=== PATIENT | female | born 1990 | race Hispanic/Latino ===

== ENCOUNTER 2023-07-12 01:05 | Observation (INO) | payer MEDICAID ==
[~2023-07-12] VITALS: Ht 160 cm; Wt 75.7 kg
[2023-07-12] VITALS (9 sets, daily range): BP systolic 108–141; BP diastolic 57–81; PULSE 68–83; RESP 16–20; O2SAT 98–100
[2023-07-12 01:32] LABS: BASOPHILS # (AUTO) 0.03 K/uL (0.00-0.20); BASOPHILS % (AUTO) 0.7 % (0.0-5.0); EOSINOPHILS # (AUTO) 0.01 K/uL (0.00-0.70); EOSINOPHILS % (AUTO) 0.2 % (0.0-8.0); HEMATOCRIT 31.2 % (36-48); IMMATURE GRANULOCYTE ABSOLUTE 0.01 K/uL (0-1); LYMPHOCYTES # (AUTO) 1.1 K/uL (1.0-4.8); LYMPHOCYTES % (AUTO) 23.2 % (21.0-51.0); MEAN CORPUSCULAR HEMOGLOBIN 19.9 pg (27.0-33.0); MEAN CORPUSCULAR HGB CONC 29.5 g/dL (32.0-36.0); MEAN CORPUSCULAR VOLUME 67.4 fL (79-99); MONOCYTES # (AUTO) 0.5 K/uL (0.1-1.0); MONOCYTES % (AUTO) 9.8 % (3.0-13.0); NEUTROPHILS % (AUTO) 65.9 % (40.0-77.0); PLATELET COUNT (AUTO) 280 K/uL (130-400); RED BLOOD CELL COUNT(AUTO) 4.63 MIL/uL (4.00-5.50); RED CELL DISTRIBUTION WIDTH 18.4 % (11.0-15.5); WHITE BLOOD COUNT (AUTO) 4.6 K/uL (4.8-10.8)
[2023-07-12 01:43] LABS: CREATININE 0.8 mg/dL (0.5-1.5); POTASSIUM 3.9 mmol/L (3.5-5.1)
[2023-07-12 01:45] LABS: ALBUMIN 3.5 g/dL (3.5-5.0); BILIRUBIN,TOTAL 0.5 mg/dL (0.2-1.0); TOTAL PROTEIN, SERUM 7.4 g/dL (6.0-8.3)
[2023-07-12 01:47] LABS: APPEARANCE,URINE CLEAR (CLEAR); BILIRUBIN,URINE NEGATIVE (NEGATIVE); COLOR,URINE LIGHT-YELLOW (YELLOW); GLUCOSE, URINE (UA) NEGATIVE (NEGATIVE); KETONES,URINE 10 mg/dL (NEGATIVE); LEUKOCYTE ESTERASE ,URINE NEGATIVE Leu/uL (NEGATIVE); NITRATE,URINE NEGATIVE (NEGATIVE); OCCULT BLOOD,URINE NEGATIVE (NEGATIVE); PH,URINE 5.5 (5.0-8.0); PROTEIN,URINE NEGATIVE (NEGATIVE); UROBILINOGEN,URINE 0.2 mg/dL (0.2-1.0)
[2023-07-12 01:49] LABS: ADD UA MICROSCOPIC NO
[2023-07-12 01:50] LABS: HCG,QUALITATIVE URINE NEGATIVE (NEGATIVE)
[2023-07-12] MEDS ORDERED: IOHEXOL-350 75 ML VIAL IV ONE (02:20)
[2023-07-12] MEDS ORDERED: 0.9%NACL 1000ML 1,000 ML IV ONE (02:30)
[2023-07-12] MEDS ORDERED: ONDANSETRON 4MG INJ IVP ONE (02:30)
[2023-07-12] MEDS ORDERED: MORPHINE 2 MG SYG IVP ONE ×2 (02:30→03:30)
[2023-07-12] MEDS ORDERED: 0.9%NACL 1000ML 1,500 ML IV ONE (03:00)
[2023-07-12] MEDS ORDERED: HYDRALAZINE 20MG/ML VIAL IV PRN (04:00)
[2023-07-12] MEDS ORDERED: ONDANSETRON 4MG INJ IVP PRN (04:00)
[2023-07-12] MEDS ORDERED: ACETAMINOPHEN 650 MG SUPPOSITORY RC PRN (04:00)
[2023-07-12] MEDS ORDERED: LABETALOL 20MG SYG IV PRN (04:00)
[2023-07-12] MEDS ORDERED: MORPHINE 4 MG SYG IVP PRN (04:00)
[2023-07-12 04:04] LABS: SARS-CoV-2, RNA, NAAT NEGATIVE SARS CoV-2 (NEGATIVE)
[2023-07-12] MEDS: LACTATED RINGERS 1000ML 1,000 ML IV SCH ×3 (04:11→16:57)
[2023-07-12] MEDS ORDERED: GLUCAGON 1MG KIT 1 MG ML IM PRN (05:00)
[2023-07-12] MEDS ORDERED: POTASSIUM CHLORIDE 20MEQ/100ML 100 ML IV PRN (05:00)
[2023-07-12] MEDS ORDERED: DEXTROSE 50%-WATER 50 ML DISP.SYRIN IV PRN (05:00)
[2023-07-12] MEDS: INSULIN HUMULIN R 100 UNIT/ML 3ML SQ SCH ×3 (07:30→21:00)
[2023-07-12] MEDS: PANTOPRAZOLE 40 MG/VIAL IVP SCH ×2 (08:17→21:03)
[2023-07-12 08:29] LABS: BASOPHILS # (AUTO) 0.03 K/uL (0.00-0.20); BASOPHILS % (AUTO) 0.8 % (0.0-5.0); HEMATOCRIT 28.7 % (36-48); IMMATURE GRANULOCYTE ABSOLUTE 0.01 K/uL (0-1); LYMPHOCYTES # (AUTO) 1.1 K/uL (1.0-4.8); LYMPHOCYTES % (AUTO) 29.4 % (21.0-51.0); MEAN CORPUSCULAR HEMOGLOBIN 19.9 pg (27.0-33.0); MEAN CORPUSCULAR HGB CONC 28.9 g/dL (32.0-36.0); MEAN CORPUSCULAR VOLUME 68.8 fL (79-99); MONOCYTES # (AUTO) 0.4 K/uL (0.1-1.0); MONOCYTES % (AUTO) 11.4 % (3.0-13.0); NEUTROPHILS # (AUTO) 2.2 K/uL (1.8-7.7); NEUTROPHILS % (AUTO) 58.1 % (40.0-77.0); PLATELET COUNT (AUTO) 251 K/uL (130-400); RED BLOOD CELL COUNT(AUTO) 4.17 MIL/uL (4.00-5.50); RED CELL DISTRIBUTION WIDTH 18.5 % (11.0-15.5); WHITE BLOOD COUNT (AUTO) 3.9 K/uL (4.8-10.8)
[2023-07-12 08:50] LABS: ALBUMIN 2.9 g/dL (3.5-5.0); BILIRUBIN,TOTAL 0.3 mg/dL (0.2-1.0); CREATININE 0.6 mg/dL (0.5-1.5); MAGNESIUM 1.8 mg/dL (1.80-2.40); PHOSPHORUS 3.6 mg/dL (2.5-4.9); POTASSIUM 3.7 mmol/L (3.5-5.1); TOTAL PROTEIN, SERUM 6.3 g/dL (6.0-8.3)
[2023-07-12] MEDS: MAGNESIUM 2GM PREMIX 50ML 50 ML IV PRN (09:48)
[2023-07-12] MEDS: ACETAMINOPHEN 325 MG TAB PO PRN (19:34)
[2023-07-13] MEDS: LACTATED RINGERS 1000ML 1,000 ML IV SCH (03:21)
[2023-07-13 03:24] VITALS: BP 116/71; PULSE 78; RESP 18
[2023-07-13 04:20] LABS: BASOPHILS # (AUTO) 0.02 K/uL (0.00-0.20); BASOPHILS % (AUTO) 0.6 % (0.0-5.0); EOSINOPHILS # (AUTO) 0.03 K/uL (0.00-0.70); EOSINOPHILS % (AUTO) 0.9 % (0.0-8.0); HEMATOCRIT 27.4 % (36-48); IMMATURE GRANULOCYTE ABSOLUTE 0.01 K/uL (0-1); LYMPHOCYTES % (AUTO) 30.6 % (21.0-51.0); MEAN CORPUSCULAR HEMOGLOBIN 20.1 pg (27.0-33.0); MEAN CORPUSCULAR HGB CONC 28.8 g/dL (32.0-36.0); MEAN CORPUSCULAR VOLUME 69.5 fL (79-99); MONOCYTES # (AUTO) 0.4 K/uL (0.1-1.0); MONOCYTES % (AUTO) 10.6 % (3.0-13.0); NEUTROPHILS # (AUTO) 1.9 K/uL (1.8-7.7); PLATELET COUNT (AUTO) 192 K/uL (130-400); RED BLOOD CELL COUNT(AUTO) 3.94 MIL/uL (4.00-5.50); RED CELL DISTRIBUTION WIDTH 18.3 % (11.0-15.5); WHITE BLOOD COUNT (AUTO) 3.4 K/uL (4.8-10.8)
[2023-07-13 04:34] LABS: ALBUMIN 2.8 g/dL (3.5-5.0); BILIRUBIN,TOTAL 0.3 mg/dL (0.2-1.0); CREATININE 0.6 mg/dL (0.5-1.5); MAGNESIUM 1.8 mg/dL (1.80-2.40); POTASSIUM 3.8 mmol/L (3.5-5.1)
[2023-07-13] MEDS: MAGNESIUM 2GM PREMIX 50ML 50 ML IV PRN (04:52)
[2023-07-13] MEDS: INSULIN HUMULIN R 100 UNIT/ML 3ML SQ SCH (07:21)
[2023-07-13 07:35] VITALS: BP 121/71; PULSE 80; RESP 16
[2023-07-13 07:40] VITALS: O2SAT 97
[2023-07-13] MEDS: PANTOPRAZOLE 40 MG/VIAL IVP SCH (08:13)
[2023-07-13] MEDS: ACETAMINOPHEN 325 MG TAB PO PRN (08:15)
[2023-07-13 12:57] VITALS: BP 107/55; PULSE 80; RESP 16
[2023-07-13 16:51] VITALS: BP 110/68; PULSE 86; RESP 16
== END 2023-07-13 18:45 | disposition home or self-care (01) ==
LOC: EDH 01:05 → EDHIP 01:06 → WSH 04:41
PROVIDERS: ADMIT Internal Medicine Critical Care Medicine; ATTEND Internal Medicine Critical Care Medicine
DX: K56.1 Intussusception (principal); Z20.822 Contact with and (suspected) exposure to COVID-19; K56.600 Partial intestinal obstruction, unspecified as to cause; N28.1 Cyst of kidney, acquired; E87.1 Hypo-osmolality and hyponatremia; E87.8 Other disorders of electrolyte and fluid balance, not elsewhere classified; D64.9 Anemia, unspecified; R82.4 Acetonuria; J02.9 Acute pharyngitis, unspecified; Z90.49 Acquired absence of other specified parts of digestive tract; Z98.84 Bariatric surgery status; Z79.899 Other long term (current) drug therapy
CPT/HCPCS: 96376 ×2; 96361 ×3; 96365; 96366 ×2; 96375; 83735 ×2; 84100; 80053 ×3; 83690; 85025 ×3; 86850; 86900; 86901; 82948 ×3; 81003; 81025; 36415 ×2; 87635; 74018; 74177; 99291; G0378 ×39; J3475 ×2; J7120; J2270 ×2; J7030 ×2; J2405; S0164 ×3; Q9967; C9113